=== PATIENT | female | born 1950 | race Caucasian/White ===

== ENCOUNTER 2020-11-09 20:50 | Inpatient (IN) ==
[2020-11-10] MEDS: Gabapentin 300 MG CAPSULE PO SCH ×2 (16:35→20:47)
[2020-11-10] MEDS: *HR* OxyCODONE Immed Rel 5 MG TABLET PO PRN ×2 (16:35→20:53)
[2020-11-10] MEDS ORDERED: *HR* OxyCODONE Immed Rel 5 MG TABLET PO SCH (18:00)
[2020-11-10] MEDS ORDERED: RED YEAST RICE 600 MG PO SCH (21:00)
[2020-11-10] MEDS: Budesonide/Formoterol 80/4.5 1 PUFF INH IH SCH (21:45)
[2020-11-11 04:03] LABS: Basophils # 0.1 K/mcL (0.0-0.2); Basophils % 0.9 %; Eosinophils # 0.3 K/mcL (0.0-0.6); Eosinophils % 3.1 %; Hematocrit 26.8 % (35.3-44.9); Hemoglobin 8.4 g/dL (11.5-15.4); Immature Granulocytes % 0.4 % (0-4); Lymphocytes # 2.4 K/mcL (0.6-4.6); Lymphocytes % 26.2 %; Mean Corpuscular HGB Conc 31.3 g/dL (31.6-35.5); Mean Corpuscular Hemoglobin 29.8 pg (28.0-33.3); Mean Platelet Volume 8.6 fL (9.4-12.4); Monocytes # 0.7 K/mcL (0.0-1.3); Monocytes % 8.2 %; Neutrophils # 5.5 K/mcL (1.6-8.9); Platelet Count 336 K/mcL (140-400); Red Blood Count 2.82 M/mcL (3.82-4.97); Red Cell Distribution Width 18.7 % (11.5-14.5); Segmented Neutrophils % 61.2 %
[2020-11-11] MEDS: *HR* Enoxaparin 40 MG/0.4 ML SYRINGE SQ SCH (05:36)
[2020-11-11] MEDS: *HR* OxyCODONE Immed Rel 5 MG TABLET PO PRN ×5 (05:36→22:31)
[2020-11-11 06:20] LABS: BUN/Creatinine Ratio 32 (6-26); Blood Urea Nitrogen 12 mg/dL (8-23); Calcium 8.3 mg/dL (8.6-10.3); Carbon Dioxide 32 mEq/L (23-29); Chloride 101 mEq/L (98-107); Glucose 120 mg/dL (70-105); Osmolality,Calculated 289 (280-300); Sodium 139 mEq/L (136-145); eGFR For African Americans > 60 (> 60); eGFR For Non-African Americans > 60 (> 60)
[2020-11-11] MEDS: Gabapentin 300 MG CAPSULE PO SCH ×4 (09:35→21:18)
[2020-11-11] MEDS: Cholecalciferol (D-3) 1,000 UNIT (25MCG) TABLET PO SCH (09:35)
[2020-11-11] MEDS: Multivit/Ca/Min/Fe/FA 1 TAB TABLET PO SCH (09:35)
[2020-11-11] MEDS: Loratadine 10 MG TABLET PO SCH (09:35)
[2020-11-11] MEDS: Ertapenem 1,000 MG in 0.9 % Sodium Chloride Mini Bag 100 ML IVPB SCH (09:36)
[2020-11-11] MEDS: Fluticasone Propionate Nasal 50 MCG/SPRAY BOTTLE NS SCH (09:43)
[2020-11-11] MEDS: Budesonide/Formoterol 80/4.5 1 PUFF INH IH SCH ×2 (10:19→22:21)
[2020-11-11] MEDS ORDERED: Morphine Sulfate 2 MG/ML SYRINGE IVP ONE (12:38)
[2020-11-12] MEDS: *HR* OxyCODONE Immed Rel 5 MG TABLET PO PRN ×4 (03:55→20:53)
[2020-11-12] MEDS: *HR* Enoxaparin 40 MG/0.4 ML SYRINGE SQ SCH (04:55)
[2020-11-12] MEDS: Multivit/Ca/Min/Fe/FA 1 TAB TABLET PO SCH (09:22)
[2020-11-12] MEDS: Gabapentin 300 MG CAPSULE PO SCH ×4 (09:22→20:53)
[2020-11-12] MEDS: Cholecalciferol (D-3) 1,000 UNIT (25MCG) TABLET PO SCH (09:22)
[2020-11-12] MEDS: Ertapenem 1,000 MG in 0.9 % Sodium Chloride Mini Bag 100 ML IVPB SCH (09:22)
[2020-11-12] MEDS: Loratadine 10 MG TABLET PO SCH (09:22)
[2020-11-12] MEDS: Fluticasone Propionate Nasal 50 MCG/SPRAY BOTTLE NS SCH (09:27)
[2020-11-12] MEDS: Budesonide/Formoterol 80/4.5 1 PUFF INH IH SCH ×2 (10:28→21:12)
[2020-11-12 13:01] LABS: % Iron Saturation 12 % (15-50); Iron 26 mcg/dL (50-170); Transferrin 158 mg/dL (203-362)
[2020-11-12 13:12] LABS: Ferritin 488 ng/mL (10-120)
[2020-11-12 13:17] LABS: Vitamin B12 406 pg/mL (250-1100)
[2020-11-12 13:22] LABS: Vitamin D 25 Hydroxy 27 ng/mL (30-80)
[2020-11-12 15:17] LABS: Basophils # 0.1 K/mcL (0.0-0.2); Basophils % 0.9 %; Eosinophils # 0.5 K/mcL (0.0-0.6); Eosinophils % 5.7 %; Hemoglobin 8.4 g/dL (11.5-15.4); Immature Granulocytes % 0.5 % (0-4); Lymphocytes # 2.4 K/mcL (0.6-4.6); Lymphocytes % 29.6 %; Mean Corpuscular HGB Conc 31.1 g/dL (31.6-35.5); Mean Corpuscular Hemoglobin 29.4 pg (28.0-33.3); Mean Corpuscular Volume 94.4 fL (83.0-100.0); Mean Platelet Volume 8.5 fL (9.4-12.4); Monocytes # 0.7 K/mcL (0.0-1.3); Neutrophils # 4.4 K/mcL (1.6-8.9); Platelet Count 345 K/mcL (140-400); Red Blood Count 2.86 M/mcL (3.82-4.97); Red Cell Distribution Width 18.1 % (11.5-14.5); Segmented Neutrophils % 54.3 %; White Blood Count 8.1 K/mcL (4.3-11.1)
[2020-11-12 15:35] LABS: Albumin 2.2 g/dL (3.5-5.7); Albumin/Globulin Ratio 0.8 (1.1-2.2); BUN/Creatinine Ratio 29 (6-26); Bilirubin,Indirect 0.3 mg/dL (0.0-1.0); Bilirubin,Total 0.3 mg/dL (0.3-1.0); Blood Urea Nitrogen 12 mg/dL (8-23); Carbon Dioxide 33 mEq/L (23-29); Chloride 99 mEq/L (98-107); Globulin 2.6 g/dL (2.4-3.5); Glucose 140 mg/dL (70-105); Osmolality,Calculated 284 (280-300); Potassium 3.7 mEq/L (3.5-5.1); Sodium 136 mEq/L (136-145); Total Protein 4.8 g/dL (6.4-8.9); eGFR For African Americans > 60 (> 60); eGFR For Non-African Americans > 60 (> 60)
[2020-11-12] MEDS: Sennosides/Docusate Sodium TABLET PO SCH (20:52)
[2020-11-13] MEDS: *HR* Enoxaparin 40 MG/0.4 ML SYRINGE SQ SCH (04:58)
[2020-11-13] MEDS: *HR* OxyCODONE Immed Rel 5 MG TABLET PO PRN ×5 (04:58→21:17)
[2020-11-13] MEDS ORDERED: Cholecalciferol (D-3) 1,000 UNIT (25MCG) TABLET PO SCH (09:00)
[2020-11-13] MEDS: Loratadine 10 MG TABLET PO SCH (09:01)
[2020-11-13] MEDS: Gabapentin 300 MG CAPSULE PO SCH ×4 (09:01→20:46)
[2020-11-13] MEDS: Multivit/Ca/Min/Fe/FA 1 TAB TABLET PO SCH (09:01)
[2020-11-13] MEDS: Fluticasone Propionate Nasal 50 MCG/SPRAY BOTTLE NS SCH (09:01)
[2020-11-13] MEDS: Sennosides/Docusate Sodium TABLET PO SCH ×2 (09:02→20:46)
[2020-11-13] MEDS: Ertapenem 1,000 MG in 0.9 % Sodium Chloride Mini Bag 100 ML IVPB SCH (09:04)
[2020-11-13] MEDS: Cholecalciferol (D-3) 1,000 UNIT (25MCG) TABLET PO SCH (09:47)
[2020-11-13] MEDS: Budesonide/Formoterol 80/4.5 1 PUFF INH IH SCH ×2 (10:03→22:22)
[2020-11-13] MEDS: Morphine Sulfate 2 MG/ML SYRINGE IVP PRN (14:10)
[2020-11-14 04:51] LABS: BUN/Creatinine Ratio 27 (6-26); Blood Urea Nitrogen 12 mg/dL (8-23); Calcium 8.2 mg/dL (8.6-10.3); Carbon Dioxide 34 mEq/L (23-29); Chloride 99 mEq/L (98-107); Glucose 112 mg/dL (70-105); Osmolality,Calculated 287 (280-300); Potassium 3.6 mEq/L (3.5-5.1); Sodium 138 mEq/L (136-145); eGFR For African Americans > 60 (> 60); eGFR For Non-African Americans > 60 (> 60)
[2020-11-14] MEDS: *HR* OxyCODONE Immed Rel 5 MG TABLET PO PRN ×4 (04:51→20:42)
[2020-11-14] MEDS: *HR* Enoxaparin 40 MG/0.4 ML SYRINGE SQ SCH (04:53)
[2020-11-14] MEDS: Sennosides/Docusate Sodium TABLET PO SCH ×2 (08:55→20:42)
[2020-11-14] MEDS: Gabapentin 300 MG CAPSULE PO SCH ×4 (08:55→20:42)
[2020-11-14] MEDS: Loratadine 10 MG TABLET PO SCH (08:55)
[2020-11-14] MEDS: Multivit/Ca/Min/Fe/FA 1 TAB TABLET PO SCH (08:55)
[2020-11-14] MEDS: Cholecalciferol (D-3) 1,000 UNIT (25MCG) TABLET PO SCH (08:56)
[2020-11-14] MEDS: Ertapenem 1,000 MG in 0.9 % Sodium Chloride Mini Bag 100 ML IVPB SCH (08:58)
[2020-11-14] MEDS: Fluticasone Propionate Nasal 50 MCG/SPRAY BOTTLE NS SCH (08:59)
[2020-11-14] MEDS: Budesonide/Formoterol 80/4.5 1 PUFF INH IH SCH ×2 (09:33→22:45)
[2020-11-14] MEDS: Morphine Sulfate 2 MG/ML SYRINGE IVP PRN (11:01)
[2020-11-14] MEDS: Ascorbic Acid 500 MG TABLET PO SCH (20:42)
[2020-11-15] MEDS: *HR* Enoxaparin 40 MG/0.4 ML SYRINGE SQ SCH (04:58)
[2020-11-15] MEDS: *HR* OxyCODONE Immed Rel 5 MG TABLET PO PRN ×3 (05:36→21:30)
[2020-11-15 07:20] LABS: Basophils # 0.1 K/mcL (0.0-0.2); Basophils % 1.1 %; Eosinophils # 0.6 K/mcL (0.0-0.6); Eosinophils % 8.2 %; Hematocrit 28.4 % (35.3-44.9); Hemoglobin 8.7 g/dL (11.5-15.4); Immature Granulocytes % 0.5 % (0-4); Lymphocytes # 2.5 K/mcL (0.6-4.6); Lymphocytes % 34.6 %; Mean Corpuscular HGB Conc 30.6 g/dL (31.6-35.5); Mean Corpuscular Hemoglobin 29.5 pg (28.0-33.3); Mean Corpuscular Volume 96.3 fL (83.0-100.0); Mean Platelet Volume 9.2 fL (9.4-12.4); Monocytes # 0.6 K/mcL (0.0-1.3); Monocytes % 8.6 %; Neutrophils # 3.4 K/mcL (1.6-8.9); Platelet Count 213 K/mcL (140-400); Red Blood Count 2.95 M/mcL (3.82-4.97); Red Cell Distribution Width 17.3 % (11.5-14.5); White Blood Count 7.3 K/mcL (4.3-11.1)
[2020-11-15] MEDS: Multivit/Ca/Min/Fe/FA 1 TAB TABLET PO SCH (08:28)
[2020-11-15] MEDS: Pyridoxine (B-6) 50 MG TABLET PO SCH (08:28)
[2020-11-15] MEDS: Ascorbic Acid 500 MG TABLET PO SCH ×2 (08:28→20:26)
[2020-11-15] MEDS: Loratadine 10 MG TABLET PO SCH (08:28)
[2020-11-15] MEDS: Sennosides/Docusate Sodium TABLET PO SCH ×2 (08:28→20:26)
[2020-11-15] MEDS: Zinc Sulfate 220 MG CAPSULE PO SCH (08:29)
[2020-11-15] MEDS: Cholecalciferol (D-3) 1,000 UNIT (25MCG) TABLET PO SCH (08:29)
[2020-11-15] MEDS: Gabapentin 300 MG CAPSULE PO SCH ×4 (08:29→20:26)
[2020-11-15] MEDS: Ertapenem 1,000 MG in 0.9 % Sodium Chloride Mini Bag 100 ML IVPB SCH (08:29)
[2020-11-15] MEDS: Fluticasone Propionate Nasal 50 MCG/SPRAY BOTTLE NS SCH (08:31)
[2020-11-15] MEDS: Budesonide/Formoterol 80/4.5 1 PUFF INH IH SCH ×2 (09:50→21:23)
[2020-11-15 09:57] LABS: Platelet Estimate Normal (Normal)
[2020-11-15 10:12] LABS: BUN/Creatinine Ratio 37 (6-26); Blood Urea Nitrogen 14 mg/dL (8-23); Calcium 8.2 mg/dL (8.6-10.3); Carbon Dioxide 29 mEq/L (23-29); Chloride 100 mEq/L (98-107); Glucose 148 mg/dL (70-105); Osmolality,Calculated 287 (280-300); Potassium 3.9 mEq/L (3.5-5.1); Sodium 137 mEq/L (136-145); eGFR For African Americans > 60 (> 60); eGFR For Non-African Americans > 60 (> 60)
[2020-11-15] MEDS: Morphine Sulfate 2 MG/ML SYRINGE IVP PRN ×2 (10:55→22:32)
[2020-11-15] MEDS ORDERED: *HR* FentaNYL PATCH 12 MCG PATCH TD SCH (18:15)
[2020-11-16] MEDS: *HR* Enoxaparin 40 MG/0.4 ML SYRINGE SQ SCH (05:44)
[2020-11-16] MEDS: *HR* OxyCODONE Immed Rel 5 MG TABLET PO PRN ×4 (06:09→19:52)
[2020-11-16] MEDS: Ascorbic Acid 500 MG TABLET PO SCH ×2 (08:43→20:36)
[2020-11-16] MEDS: Gabapentin 300 MG CAPSULE PO SCH ×4 (08:43→20:36)
[2020-11-16] MEDS: Sennosides/Docusate Sodium TABLET PO SCH ×2 (08:43→20:37)
[2020-11-16] MEDS: Zinc Sulfate 220 MG CAPSULE PO SCH (08:43)
[2020-11-16] MEDS: Multivit/Ca/Min/Fe/FA 1 TAB TABLET PO SCH (08:43)
[2020-11-16] MEDS: Loratadine 10 MG TABLET PO SCH (08:43)
[2020-11-16] MEDS: Cholecalciferol (D-3) 1,000 UNIT (25MCG) TABLET PO SCH (08:44)
[2020-11-16] MEDS: Ertapenem 1,000 MG in 0.9 % Sodium Chloride Mini Bag 100 ML IVPB SCH (08:45)
[2020-11-16] MEDS: Pyridoxine (B-6) 50 MG TABLET PO SCH (10:02)
[2020-11-16] MEDS: Fluticasone Propionate Nasal 50 MCG/SPRAY BOTTLE NS SCH (10:02)
[2020-11-16] MEDS: Budesonide/Formoterol 80/4.5 1 PUFF INH IH SCH ×2 (10:24→21:26)
[2020-11-17] MEDS: *HR* OxyCODONE Immed Rel 5 MG TABLET PO PRN ×5 (02:49→20:29)
[2020-11-17] MEDS: *HR* Enoxaparin 40 MG/0.4 ML SYRINGE SQ SCH (05:47)
[2020-11-17] MEDS: Multivit/Ca/Min/Fe/FA 1 TAB TABLET PO SCH (08:29)
[2020-11-17] MEDS: Ascorbic Acid 500 MG TABLET PO SCH ×2 (08:29→20:28)
[2020-11-17] MEDS: Zinc Sulfate 220 MG CAPSULE PO SCH (08:29)
[2020-11-17] MEDS: Sennosides/Docusate Sodium TABLET PO SCH ×2 (08:29→20:30)
[2020-11-17] MEDS: Loratadine 10 MG TABLET PO SCH (08:29)
[2020-11-17] MEDS: Gabapentin 300 MG CAPSULE PO SCH ×4 (08:29→20:28)
[2020-11-17] MEDS: Cholecalciferol (D-3) 1,000 UNIT (25MCG) TABLET PO SCH (08:30)
[2020-11-17] MEDS: Ertapenem 1,000 MG in 0.9 % Sodium Chloride Mini Bag 100 ML IVPB SCH (08:30)
[2020-11-17] MEDS: Fluticasone Propionate Nasal 50 MCG/SPRAY BOTTLE NS SCH (08:31)
[2020-11-17] MEDS: Budesonide/Formoterol 80/4.5 1 PUFF INH IH SCH ×2 (08:38→21:10)
[2020-11-17] MEDS: Morphine Sulfate 2 MG/ML SYRINGE IVP PRN (14:25)
[2020-11-17] MEDS: Pyridoxine (B-6) 50 MG TABLET PO SCH (16:08)
[2020-11-18] MEDS: *HR* OxyCODONE Immed Rel 5 MG TABLET PO PRN ×6 (00:27→20:48)
[2020-11-18] MEDS: *HR* Enoxaparin 40 MG/0.4 ML SYRINGE SQ SCH (04:29)
[2020-11-18] MEDS ORDERED: *HR* FentaNYL PATCH 25 MCG PATCH TD SCH (07:45)
[2020-11-18] MEDS: Budesonide/Formoterol 80/4.5 1 PUFF INH IH SCH ×2 (08:30→22:15)
[2020-11-18] MEDS: Zinc Sulfate 220 MG CAPSULE PO SCH (08:34)
[2020-11-18] MEDS: Loratadine 10 MG TABLET PO SCH (08:34)
[2020-11-18] MEDS: Fluticasone Propionate Nasal 50 MCG/SPRAY BOTTLE NS SCH (08:34)
[2020-11-18] MEDS: Cholecalciferol (D-3) 1,000 UNIT (25MCG) TABLET PO SCH (08:34)
[2020-11-18] MEDS: Gabapentin 300 MG CAPSULE PO SCH ×4 (08:34→20:47)
[2020-11-18] MEDS: Ascorbic Acid 500 MG TABLET PO SCH ×2 (08:35→20:48)
[2020-11-18] MEDS: Ertapenem 1,000 MG in 0.9 % Sodium Chloride Mini Bag 100 ML IVPB SCH (08:35)
[2020-11-18] MEDS: Sennosides/Docusate Sodium TABLET PO SCH ×2 (08:36→20:47)
[2020-11-18] MEDS: Multivit/Ca/Min/Fe/FA 1 TAB TABLET PO SCH (08:37)
[2020-11-18] MEDS: Pyridoxine (B-6) 50 MG TABLET PO SCH (08:37)
[2020-11-19] MEDS: *HR* Enoxaparin 40 MG/0.4 ML SYRINGE SQ SCH (05:59)
[2020-11-19] MEDS: *HR* OxyCODONE Immed Rel 5 MG TABLET PO PRN ×4 (06:02→20:45)
[2020-11-19 07:05] LABS: Basophils # 0.1 K/mcL (0.0-0.2); Basophils % 1.2 %; Eosinophils # 0.5 K/mcL (0.0-0.6); Eosinophils % 5.7 %; Hematocrit 30.3 % (35.3-44.9); Hemoglobin 9.4 g/dL (11.5-15.4); Immature Granulocytes % 0.5 % (0-4); Lymphocytes # 2.6 K/mcL (0.6-4.6); Lymphocytes % 28.6 %; Mean Corpuscular Hemoglobin 29.2 pg (28.0-33.3); Mean Corpuscular Volume 94.1 fL (83.0-100.0); Mean Platelet Volume 8.5 fL (9.4-12.4); Monocytes # 0.9 K/mcL (0.0-1.3); Monocytes % 9.6 %; Platelet Count 413 K/mcL (140-400); Red Blood Count 3.22 M/mcL (3.82-4.97); Red Cell Distribution Width 16.2 % (11.5-14.5); Segmented Neutrophils % 54.4 %; White Blood Count 9.2 K/mcL (4.3-11.1)
[2020-11-19 07:31] LABS: Alanine Aminotransferase 32 Units/L (7-52); Albumin 2.2 g/dL (3.5-5.7); Albumin/Globulin Ratio 0.8 (1.1-2.2); Alkaline Phosphatase 177 Units/L (34-104); Aspartate Amino Transferase 36 Units/L (13-39); BUN/Creatinine Ratio 34 (6-26); Bilirubin,Direct 0.1 mg/dL (0.0-0.2); Bilirubin,Indirect 0.3 mg/dL (0.0-1.0); Bilirubin,Total 0.4 mg/dL (0.3-1.0); Blood Urea Nitrogen 11 mg/dL (8-23); Calcium 8.3 mg/dL (8.6-10.3); Carbon Dioxide 31 mEq/L (23-29); Chloride 99 mEq/L (98-107); Globulin 2.9 g/dL (2.4-3.5); Glucose 127 mg/dL (70-105); Osmolality,Calculated 283 (280-300); Potassium 3.6 mEq/L (3.5-5.1); Sodium 136 mEq/L (136-145); Total Protein 5.1 g/dL (6.4-8.9); eGFR For African Americans > 60 (> 60); eGFR For Non-African Americans > 60 (> 60)
[2020-11-19] MEDS: Budesonide/Formoterol 80/4.5 1 PUFF INH IH SCH ×2 (08:32→21:40)
[2020-11-19] MEDS: Cholecalciferol (D-3) 1,000 UNIT (25MCG) TABLET PO SCH (08:52)
[2020-11-19] MEDS: Ascorbic Acid 500 MG TABLET PO SCH ×2 (08:53→20:04)
[2020-11-19] MEDS: Zinc Sulfate 220 MG CAPSULE PO SCH (08:53)
[2020-11-19] MEDS: Multivit/Ca/Min/Fe/FA 1 TAB TABLET PO SCH (08:53)
[2020-11-19] MEDS: Sennosides/Docusate Sodium TABLET PO SCH ×2 (08:53→20:05)
[2020-11-19] MEDS: Loratadine 10 MG TABLET PO SCH (08:53)
[2020-11-19] MEDS: Gabapentin 300 MG CAPSULE PO SCH ×4 (08:53→20:04)
[2020-11-19] MEDS: Morphine Sulfate 2 MG/ML SYRINGE IVP PRN (09:46)
[2020-11-19] MEDS: Fluticasone Propionate Nasal 50 MCG/SPRAY BOTTLE NS SCH (09:51)
[2020-11-19] MEDS: Pyridoxine (B-6) 50 MG TABLET PO SCH (11:30)
[2020-11-19] MEDS: Ertapenem 1,000 MG in 0.9 % Sodium Chloride Mini Bag 100 ML IVPB SCH (11:30)
[2020-11-20] MEDS: *HR* Enoxaparin 40 MG/0.4 ML SYRINGE SQ SCH (05:38)
[2020-11-20] MEDS: *HR* OxyCODONE Immed Rel 5 MG TABLET PO PRN ×3 (07:47→21:28)
[2020-11-20] MEDS: Zinc Sulfate 220 MG CAPSULE PO SCH (09:06)
[2020-11-20] MEDS: Ascorbic Acid 500 MG TABLET PO SCH ×2 (09:07→21:28)
[2020-11-20] MEDS: Cholecalciferol (D-3) 1,000 UNIT (25MCG) TABLET PO SCH (09:07)
[2020-11-20] MEDS: Sennosides/Docusate Sodium TABLET PO SCH ×2 (09:07→21:29)
[2020-11-20] MEDS: Loratadine 10 MG TABLET PO SCH (09:08)
[2020-11-20] MEDS: Multivit/Ca/Min/Fe/FA 1 TAB TABLET PO SCH (09:09)
[2020-11-20] MEDS: Pyridoxine (B-6) 50 MG TABLET PO SCH (09:09)
[2020-11-20] MEDS: Gabapentin 300 MG CAPSULE PO SCH ×4 (09:09→21:28)
[2020-11-20] MEDS: Fluticasone Propionate Nasal 50 MCG/SPRAY BOTTLE NS SCH (09:11)
[2020-11-20] MEDS: Budesonide/Formoterol 80/4.5 1 PUFF INH IH SCH ×2 (10:09→22:28)
[2020-11-20] MEDS: Morphine Sulfate 2 MG/ML SYRINGE IVP PRN ×2 (10:37→15:12)
[2020-11-20] MEDS: Ertapenem 1,000 MG in 0.9 % Sodium Chloride Mini Bag 100 ML IVPB SCH (10:59)
[2020-11-20] MEDS ORDERED: *HR* Alteplase (Cathflo) 2 MG VIAL IVP ONE ×2 (15:16→22:00)
[2020-11-20] MEDS ORDERED: Water for inj. (sterile) 10 ML ONE (16:48)
[2020-11-20] MEDS ORDERED: *HR* FentaNYL PATCH 25 MCG PATCH TD SCH (16:55)
[2020-11-21] MEDS: *HR* OxyCODONE Immed Rel 5 MG TABLET PO PRN ×6 (01:29→21:54)
[2020-11-21] MEDS: *HR* Enoxaparin 40 MG/0.4 ML SYRINGE SQ SCH (05:26)
[2020-11-21] MEDS: Pyridoxine (B-6) 50 MG TABLET PO SCH (08:45)
[2020-11-21] MEDS: Ascorbic Acid 500 MG TABLET PO SCH ×2 (08:45→19:39)
[2020-11-21] MEDS: Zinc Sulfate 220 MG CAPSULE PO SCH (08:45)
[2020-11-21] MEDS: Cholecalciferol (D-3) 1,000 UNIT (25MCG) TABLET PO SCH (08:45)
[2020-11-21] MEDS: Gabapentin 300 MG CAPSULE PO SCH ×4 (08:45→19:39)
[2020-11-21] MEDS: Loratadine 10 MG TABLET PO SCH (08:45)
[2020-11-21] MEDS: Multivit/Ca/Min/Fe/FA 1 TAB TABLET PO SCH (08:45)
[2020-11-21] MEDS: Sennosides/Docusate Sodium TABLET PO SCH ×2 (08:46→19:40)
[2020-11-21] MEDS: Fluticasone Propionate Nasal 50 MCG/SPRAY BOTTLE NS SCH (08:52)
[2020-11-21] MEDS: Budesonide/Formoterol 80/4.5 1 PUFF INH IH SCH ×2 (09:53→22:35)
[2020-11-21] MEDS: Ertapenem 1,000 MG in 0.9 % Sodium Chloride Mini Bag 100 ML IVPB SCH (10:42)
[2020-11-21] MEDS: Morphine Sulfate 2 MG/ML SYRINGE IVP PRN (10:43)
[2020-11-22] MEDS: *HR* OxyCODONE Immed Rel 5 MG TABLET PO PRN ×3 (02:06→20:05)
[2020-11-22 05:41] LABS: BUN/Creatinine Ratio 44 (6-26); Blood Urea Nitrogen 16 mg/dL (8-23); Calcium 8.3 mg/dL (8.6-10.3); Carbon Dioxide 33 mEq/L (23-29); Chloride 99 mEq/L (98-107); Glucose 111 mg/dL (70-105); Osmolality,Calculated 284 (280-300); Potassium 3.7 mEq/L (3.5-5.1); Sodium 136 mEq/L (136-145); eGFR For African Americans > 60 (> 60); eGFR For Non-African Americans > 60 (> 60)
[2020-11-22] MEDS: *HR* Enoxaparin 40 MG/0.4 ML SYRINGE SQ SCH (05:54)
[2020-11-22] MEDS: Gabapentin 300 MG CAPSULE PO SCH ×4 (08:34→20:05)
[2020-11-22] MEDS: Pyridoxine (B-6) 50 MG TABLET PO SCH (08:34)
[2020-11-22] MEDS: Loratadine 10 MG TABLET PO SCH (08:34)
[2020-11-22] MEDS: Multivit/Ca/Min/Fe/FA 1 TAB TABLET PO SCH (08:34)
[2020-11-22] MEDS: Ascorbic Acid 500 MG TABLET PO SCH ×2 (08:34→20:05)
[2020-11-22] MEDS: Sennosides/Docusate Sodium TABLET PO SCH ×2 (08:34→20:15)
[2020-11-22] MEDS: Cholecalciferol (D-3) 1,000 UNIT (25MCG) TABLET PO SCH (08:34)
[2020-11-22] MEDS: Zinc Sulfate 220 MG CAPSULE PO SCH (08:34)
[2020-11-22] MEDS: Fluticasone Propionate Nasal 50 MCG/SPRAY BOTTLE NS SCH (08:48)
[2020-11-22] MEDS: Budesonide/Formoterol 80/4.5 1 PUFF INH IH SCH ×2 (08:57→21:30)
[2020-11-22] MEDS: Morphine Sulfate 2 MG/ML SYRINGE IVP PRN (10:06)
[2020-11-22] MEDS: Ertapenem 1,000 MG in 0.9 % Sodium Chloride Mini Bag 100 ML IVPB SCH (10:26)
[2020-11-23] MEDS: *HR* OxyCODONE Immed Rel 5 MG TABLET PO PRN ×4 (05:48→20:46)
[2020-11-23] MEDS: *HR* Enoxaparin 40 MG/0.4 ML SYRINGE SQ SCH (05:49)
[2020-11-23] MEDS: Budesonide/Formoterol 80/4.5 1 PUFF INH IH SCH ×2 (09:05→21:55)
[2020-11-23] MEDS: Sennosides/Docusate Sodium TABLET PO SCH ×2 (09:14→20:49)
[2020-11-23] MEDS: Zinc Sulfate 220 MG CAPSULE PO SCH (09:15)
[2020-11-23] MEDS: Cholecalciferol (D-3) 1,000 UNIT (25MCG) TABLET PO SCH (09:16)
[2020-11-23] MEDS: Gabapentin 300 MG CAPSULE PO SCH ×4 (09:17→20:46)
[2020-11-23] MEDS: Multivit/Ca/Min/Fe/FA 1 TAB TABLET PO SCH (09:17)
[2020-11-23] MEDS: Fluticasone Propionate Nasal 50 MCG/SPRAY BOTTLE NS SCH (09:17)
[2020-11-23] MEDS: Loratadine 10 MG TABLET PO SCH (09:17)
[2020-11-23] MEDS: Ascorbic Acid 500 MG TABLET PO SCH ×2 (09:17→20:46)
[2020-11-23] MEDS: Pyridoxine (B-6) 50 MG TABLET PO SCH (09:17)
[2020-11-23] MEDS: Morphine Sulfate 2 MG/ML SYRINGE IVP PRN ×3 (10:32→23:09)
[2020-11-23] MEDS: Ertapenem 1,000 MG in 0.9 % Sodium Chloride Mini Bag 100 ML IVPB SCH (12:04)
[2020-11-23] MEDS: *HR* FentaNYL PATCH 50 MCG PATCH TD SCH (17:28)
[2020-11-24] MEDS: *HR* OxyCODONE Immed Rel 5 MG TABLET PO PRN ×4 (05:14→19:50)
[2020-11-24] MEDS: *HR* Enoxaparin 40 MG/0.4 ML SYRINGE SQ SCH (05:16)
[2020-11-24] MEDS: Gabapentin 300 MG CAPSULE PO SCH ×4 (09:01→19:50)
[2020-11-24] MEDS: Loratadine 10 MG TABLET PO SCH (09:01)
[2020-11-24] MEDS: Ascorbic Acid 500 MG TABLET PO SCH ×2 (09:02→19:50)
[2020-11-24] MEDS: Cholecalciferol (D-3) 1,000 UNIT (25MCG) TABLET PO SCH (09:02)
[2020-11-24] MEDS: Pyridoxine (B-6) 50 MG TABLET PO SCH (09:03)
[2020-11-24] MEDS: Sennosides/Docusate Sodium TABLET PO SCH ×2 (09:03→19:56)
[2020-11-24] MEDS: Zinc Sulfate 220 MG CAPSULE PO SCH (09:03)
[2020-11-24] MEDS: Multivit/Ca/Min/Fe/FA 1 TAB TABLET PO SCH (09:03)
[2020-11-24] MEDS: Fluticasone Propionate Nasal 50 MCG/SPRAY BOTTLE NS SCH (09:10)
[2020-11-24] MEDS: Budesonide/Formoterol 80/4.5 1 PUFF INH IH SCH ×2 (10:13→22:30)
[2020-11-24] MEDS: Ertapenem 1,000 MG in 0.9 % Sodium Chloride Mini Bag 100 ML IVPB SCH (11:05)
[2020-11-24] MEDS: Morphine Sulfate 2 MG/ML SYRINGE IVP PRN (15:00)
[2020-11-25] MEDS: *HR* OxyCODONE Immed Rel 5 MG TABLET PO PRN ×4 (03:34→19:47)
[2020-11-25] MEDS: *HR* Enoxaparin 40 MG/0.4 ML SYRINGE SQ SCH (05:39)
[2020-11-25] MEDS: Multivit/Ca/Min/Fe/FA 1 TAB TABLET PO SCH (07:33)
[2020-11-25] MEDS: Loratadine 10 MG TABLET PO SCH (07:33)
[2020-11-25] MEDS: Gabapentin 300 MG CAPSULE PO SCH ×4 (07:33→19:47)
[2020-11-25] MEDS: Ascorbic Acid 500 MG TABLET PO SCH ×2 (07:34→19:47)
[2020-11-25] MEDS: Cholecalciferol (D-3) 1,000 UNIT (25MCG) TABLET PO SCH (07:34)
[2020-11-25] MEDS: Pyridoxine (B-6) 50 MG TABLET PO SCH (07:34)
[2020-11-25] MEDS: Zinc Sulfate 220 MG CAPSULE PO SCH (07:34)
[2020-11-25] MEDS: Sennosides/Docusate Sodium TABLET PO SCH ×2 (07:36→20:17)
[2020-11-25] MEDS: Fluticasone Propionate Nasal 50 MCG/SPRAY BOTTLE NS SCH (07:36)
[2020-11-25] MEDS: Morphine Sulfate 2 MG/ML SYRINGE IVP PRN (08:50)
[2020-11-25] MEDS: Budesonide/Formoterol 80/4.5 1 PUFF INH IH SCH ×2 (10:06→21:52)
[2020-11-25] MEDS: Ertapenem 1,000 MG in 0.9 % Sodium Chloride Mini Bag 100 ML IVPB SCH (10:39)
[2020-11-26] MEDS: *HR* OxyCODONE Immed Rel 5 MG TABLET PO PRN ×4 (04:58→20:45)
[2020-11-26] MEDS: *HR* Enoxaparin 40 MG/0.4 ML SYRINGE SQ SCH (04:59)
[2020-11-26 08:06] LABS: Basophils # 0.1 K/mcL (0.0-0.2); Basophils % 1.5 %; Eosinophils # 0.3 K/mcL (0.0-0.6); Eosinophils % 4.2 %; Hematocrit 29.8 % (35.3-44.9); Lymphocytes # 2.8 K/mcL (0.6-4.6); Lymphocytes % 34.4 %; Mean Corpuscular HGB Conc 30.2 g/dL (31.6-35.5); Mean Corpuscular Hemoglobin 28.1 pg (28.0-33.3); Mean Corpuscular Volume 93.1 fL (83.0-100.0); Mean Platelet Volume 8.6 fL (9.4-12.4); Monocytes # 0.7 K/mcL (0.0-1.3); Monocytes % 8.7 %; Neutrophils # 4.1 K/mcL (1.6-8.9); Platelet Count 532 K/mcL (140-400); Red Cell Distribution Width 16.1 % (11.5-14.5); Segmented Neutrophils % 50.2 %; White Blood Count 8.2 K/mcL (4.3-11.1)
[2020-11-26 08:29] LABS: Alanine Aminotransferase 47 Units/L (7-52); Albumin 2.1 g/dL (3.5-5.7); Albumin/Globulin Ratio 0.7 (1.1-2.2); Alkaline Phosphatase 181 Units/L (34-104); Aspartate Amino Transferase 53 Units/L (13-39); BUN/Creatinine Ratio 32 (6-26); Bilirubin,Direct 0.1 mg/dL (0.0-0.2); Bilirubin,Indirect 0.2 mg/dL (0.0-1.0); Bilirubin,Total 0.3 mg/dL (0.3-1.0); Blood Urea Nitrogen 12 mg/dL (8-23); Calcium 8.5 mg/dL (8.6-10.3); Carbon Dioxide 34 mEq/L (23-29); Chloride 100 mEq/L (98-107); Globulin 2.9 g/dL (2.4-3.5); Glucose 100 mg/dL (70-105); Osmolality,Calculated 290 (280-300); Potassium 3.6 mEq/L (3.5-5.1); Sodium 140 mEq/L (136-145); eGFR For African Americans > 60 (> 60); eGFR For Non-African Americans > 60 (> 60)
[2020-11-26] MEDS: Morphine Sulfate 2 MG/ML SYRINGE IVP PRN ×2 (08:44→14:20)
[2020-11-26] MEDS: Pyridoxine (B-6) 50 MG TABLET PO SCH (08:45)
[2020-11-26] MEDS: Cholecalciferol (D-3) 1,000 UNIT (25MCG) TABLET PO SCH (08:45)
[2020-11-26] MEDS: Zinc Sulfate 220 MG CAPSULE PO SCH (08:46)
[2020-11-26] MEDS: Sennosides/Docusate Sodium TABLET PO SCH ×2 (08:46→20:43)
[2020-11-26] MEDS: Multivit/Ca/Min/Fe/FA 1 TAB TABLET PO SCH (08:46)
[2020-11-26] MEDS: Ascorbic Acid 500 MG TABLET PO SCH ×2 (08:46→20:43)
[2020-11-26] MEDS: Gabapentin 300 MG CAPSULE PO SCH ×4 (08:46→20:43)
[2020-11-26] MEDS: Loratadine 10 MG TABLET PO SCH (08:46)
[2020-11-26] MEDS: Fluticasone Propionate Nasal 50 MCG/SPRAY BOTTLE NS SCH (08:57)
[2020-11-26] MEDS: Budesonide/Formoterol 80/4.5 1 PUFF INH IH SCH ×2 (09:57→20:55)
[2020-11-26] MEDS: Ertapenem 1,000 MG in 0.9 % Sodium Chloride Mini Bag 100 ML IVPB SCH (10:55)
[2020-11-26] MEDS: *HR* FentaNYL PATCH 50 MCG PATCH TD SCH (16:45)
[2020-11-27] MEDS: Morphine Sulfate 2 MG/ML SYRINGE IVP PRN ×2 (00:01→09:38)
[2020-11-27] MEDS: *HR* OxyCODONE Immed Rel 5 MG TABLET PO PRN ×5 (03:24→20:15)
[2020-11-27] MEDS: *HR* Enoxaparin 40 MG/0.4 ML SYRINGE SQ SCH (06:39)
[2020-11-27] MEDS: Budesonide/Formoterol 80/4.5 1 PUFF INH IH SCH ×2 (07:58→20:20)
[2020-11-27] MEDS: Gabapentin 300 MG CAPSULE PO SCH ×4 (08:59→20:15)
[2020-11-27] MEDS: Pyridoxine (B-6) 50 MG TABLET PO SCH (08:59)
[2020-11-27] MEDS: Multivit/Ca/Min/Fe/FA 1 TAB TABLET PO SCH (08:59)
[2020-11-27] MEDS: Cholecalciferol (D-3) 1,000 UNIT (25MCG) TABLET PO SCH (08:59)
[2020-11-27] MEDS: Ascorbic Acid 500 MG TABLET PO SCH ×2 (09:00→20:15)
[2020-11-27] MEDS: Zinc Sulfate 220 MG CAPSULE PO SCH (09:00)
[2020-11-27] MEDS: Loratadine 10 MG TABLET PO SCH (09:00)
[2020-11-27] MEDS: Fluticasone Propionate Nasal 50 MCG/SPRAY BOTTLE NS SCH (09:00)
[2020-11-27] MEDS: Sennosides/Docusate Sodium TABLET PO SCH ×2 (09:00→20:20)
[2020-11-27] MEDS: Ertapenem 1,000 MG in 0.9 % Sodium Chloride Mini Bag 100 ML IVPB SCH (10:40)
[2020-11-27] MEDS: *HR* FentaNYL PATCH 75 MCG PATCH TD SCH (10:41)
[2020-11-28] MEDS: *HR* Enoxaparin 40 MG/0.4 ML SYRINGE SQ SCH (06:13)
[2020-11-28 07:50] LABS: Alanine Aminotransferase 46 Units/L (7-52); Albumin/Globulin Ratio 0.7 (1.1-2.2); Alkaline Phosphatase 203 Units/L (34-104); Aspartate Amino Transferase 51 Units/L (13-39); BUN/Creatinine Ratio 38 (6-26); Bilirubin,Total 0.2 mg/dL (0.3-1.0); Blood Urea Nitrogen 14 mg/dL (8-23); Calcium 8.1 mg/dL (8.6-10.3); Carbon Dioxide 32 mEq/L (23-29); Chloride 103 mEq/L (98-107); Globulin 2.7 g/dL (2.4-3.5); Glucose 100 mg/dL (70-105); Osmolality,Calculated 293 (280-300); Potassium 3.8 mEq/L (3.5-5.1); Sodium 141 mEq/L (136-145); Total Protein 4.7 g/dL (6.4-8.9); eGFR For African Americans > 60 (> 60); eGFR For Non-African Americans > 60 (> 60)
[2020-11-28] MEDS: *HR* OxyCODONE Immed Rel 5 MG TABLET PO PRN ×3 (07:51→23:14)
[2020-11-28] MEDS: Gabapentin 300 MG CAPSULE PO SCH ×4 (07:52→20:13)
[2020-11-28] MEDS: Ascorbic Acid 500 MG TABLET PO SCH ×2 (07:52→20:13)
[2020-11-28] MEDS: Sennosides/Docusate Sodium TABLET PO SCH ×2 (07:52→20:15)
[2020-11-28] MEDS: Multivit/Ca/Min/Fe/FA 1 TAB TABLET PO SCH (07:52)
[2020-11-28] MEDS: Loratadine 10 MG TABLET PO SCH (07:52)
[2020-11-28] MEDS: Cholecalciferol (D-3) 1,000 UNIT (25MCG) TABLET PO SCH (07:53)
[2020-11-28] MEDS: Zinc Sulfate 220 MG CAPSULE PO SCH (07:53)
[2020-11-28] MEDS: Pyridoxine (B-6) 50 MG TABLET PO SCH (07:53)
[2020-11-28] MEDS: Budesonide/Formoterol 80/4.5 1 PUFF INH IH SCH ×2 (09:10→20:44)
[2020-11-28] MEDS: Fluticasone Propionate Nasal 50 MCG/SPRAY BOTTLE NS SCH (09:47)
[2020-11-28] MEDS: Ertapenem 1,000 MG in 0.9 % Sodium Chloride Mini Bag 100 ML IVPB SCH (09:51)
[2020-11-28] MEDS: Morphine Sulfate 2 MG/ML SYRINGE IVP PRN ×2 (10:46→20:13)
[2020-11-29] MEDS: *HR* Enoxaparin 40 MG/0.4 ML SYRINGE SQ SCH (05:36)
[2020-11-29] MEDS: Pyridoxine (B-6) 50 MG TABLET PO SCH (08:14)
[2020-11-29] MEDS: Multivit/Ca/Min/Fe/FA 1 TAB TABLET PO SCH (08:14)
[2020-11-29] MEDS: Sennosides/Docusate Sodium TABLET PO SCH ×2 (08:15→20:31)
[2020-11-29] MEDS: Loratadine 10 MG TABLET PO SCH (08:15)
[2020-11-29] MEDS: Gabapentin 300 MG CAPSULE PO SCH ×4 (08:15→20:29)
[2020-11-29] MEDS: Ascorbic Acid 500 MG TABLET PO SCH ×2 (08:15→20:29)
[2020-11-29] MEDS: *HR* OxyCODONE Immed Rel 5 MG TABLET PO PRN ×3 (08:15→20:30)
[2020-11-29] MEDS: Zinc Sulfate 220 MG CAPSULE PO SCH (08:15)
[2020-11-29] MEDS: Cholecalciferol (D-3) 1,000 UNIT (25MCG) TABLET PO SCH (08:16)
[2020-11-29] MEDS: Fluticasone Propionate Nasal 50 MCG/SPRAY BOTTLE NS SCH (08:19)
[2020-11-29] MEDS: Morphine Sulfate 2 MG/ML SYRINGE IVP PRN (09:49)
[2020-11-29] MEDS: Ertapenem 1,000 MG in 0.9 % Sodium Chloride Mini Bag 100 ML IVPB SCH (10:49)
[2020-11-29] MEDS: Budesonide/Formoterol 80/4.5 1 PUFF INH IH SCH ×2 (10:51→21:00)
[2020-11-30] MEDS: *HR* OxyCODONE Immed Rel 5 MG TABLET PO PRN ×5 (00:31→20:38)
[2020-11-30] MEDS: *HR* Enoxaparin 40 MG/0.4 ML SYRINGE SQ SCH (04:31)
[2020-11-30] MEDS: Morphine Sulfate 2 MG/ML SYRINGE IVP PRN ×4 (07:15→22:19)
[2020-11-30] MEDS: Cholecalciferol (D-3) 1,000 UNIT (25MCG) TABLET PO SCH (08:00)
[2020-11-30] MEDS: Pyridoxine (B-6) 50 MG TABLET PO SCH (08:00)
[2020-11-30] MEDS: Gabapentin 300 MG CAPSULE PO SCH ×4 (08:00→20:33)
[2020-11-30] MEDS: Sennosides/Docusate Sodium TABLET PO SCH ×2 (08:01→20:31)
[2020-11-30] MEDS: Multivit/Ca/Min/Fe/FA 1 TAB TABLET PO SCH (08:01)
[2020-11-30] MEDS: Zinc Sulfate 220 MG CAPSULE PO SCH (08:01)
[2020-11-30] MEDS: Ascorbic Acid 500 MG TABLET PO SCH ×2 (08:01→20:33)
[2020-11-30] MEDS: Loratadine 10 MG TABLET PO SCH (08:01)
[2020-11-30] MEDS: *HR* FentaNYL PATCH 75 MCG PATCH TD SCH (08:07)
[2020-11-30] MEDS: Fluticasone Propionate Nasal 50 MCG/SPRAY BOTTLE NS SCH (08:17)
[2020-11-30] MEDS: Budesonide/Formoterol 80/4.5 1 PUFF INH IH SCH ×2 (10:01→21:19)
[2020-11-30] MEDS: Ertapenem 1,000 MG in 0.9 % Sodium Chloride Mini Bag 100 ML IVPB SCH (11:10)
[2020-12-01] MEDS: *HR* Enoxaparin 40 MG/0.4 ML SYRINGE SQ SCH (04:54)
[2020-12-01] MEDS: *HR* OxyCODONE Immed Rel 5 MG TABLET PO PRN ×4 (04:55→20:49)
[2020-12-01] MEDS: Zinc Sulfate 220 MG CAPSULE PO SCH (08:48)
[2020-12-01] MEDS: Sennosides/Docusate Sodium TABLET PO SCH ×2 (08:48→20:50)
[2020-12-01] MEDS: Loratadine 10 MG TABLET PO SCH (08:48)
[2020-12-01] MEDS: Ascorbic Acid 500 MG TABLET PO SCH ×2 (08:48→20:49)
[2020-12-01] MEDS: Gabapentin 300 MG CAPSULE PO SCH ×4 (08:48→20:49)
[2020-12-01] MEDS: Fluticasone Propionate Nasal 50 MCG/SPRAY BOTTLE NS SCH (08:51)
[2020-12-01] MEDS: Budesonide/Formoterol 80/4.5 1 PUFF INH IH SCH ×2 (08:58→20:43)
[2020-12-01] MEDS: Ertapenem 1,000 MG in 0.9 % Sodium Chloride Mini Bag 100 ML IVPB SCH (10:27)
[2020-12-01] MEDS: Cholecalciferol (D-3) 1,000 UNIT (25MCG) TABLET PO SCH (12:05)
[2020-12-01] MEDS: Morphine Sulfate 2 MG/ML SYRINGE IVP PRN (12:05)
[2020-12-01] MEDS: Pyridoxine (B-6) 50 MG TABLET PO SCH (12:05)
[2020-12-01] MEDS: Multivit/Ca/Min/Fe/FA 1 TAB TABLET PO SCH (12:05)
[2020-12-02] MEDS: *HR* OxyCODONE Immed Rel 5 MG TABLET PO PRN ×4 (03:35→19:53)
[2020-12-02] MEDS: *HR* Enoxaparin 40 MG/0.4 ML SYRINGE SQ SCH (06:27)
[2020-12-02] MEDS: Gabapentin 300 MG CAPSULE PO SCH ×4 (09:01→19:53)
[2020-12-02] MEDS: Loratadine 10 MG TABLET PO SCH (09:01)
[2020-12-02] MEDS: Ascorbic Acid 500 MG TABLET PO SCH ×2 (09:01→19:53)
[2020-12-02] MEDS: Sennosides/Docusate Sodium TABLET PO SCH ×2 (09:01→19:54)
[2020-12-02] MEDS: Fluticasone Propionate Nasal 50 MCG/SPRAY BOTTLE NS SCH (09:01)
[2020-12-02] MEDS: Budesonide/Formoterol 80/4.5 1 PUFF INH IH SCH ×2 (09:14→21:05)
[2020-12-02] MEDS: Ertapenem 1,000 MG in 0.9 % Sodium Chloride Mini Bag 100 ML IVPB SCH (10:02)
[2020-12-02] MEDS: Morphine Sulfate 2 MG/ML SYRINGE IVP PRN ×2 (11:23→15:56)
[2020-12-02] MEDS: Zinc Sulfate 220 MG CAPSULE PO SCH (12:21)
[2020-12-02] MEDS: Pyridoxine (B-6) 50 MG TABLET PO SCH (12:21)
[2020-12-02] MEDS: Multivit/Ca/Min/Fe/FA 1 TAB TABLET PO SCH (12:21)
[2020-12-02] MEDS: Cholecalciferol (D-3) 1,000 UNIT (25MCG) TABLET PO SCH (12:22)
[2020-12-03] MEDS: *HR* OxyCODONE Immed Rel 5 MG TABLET PO PRN ×3 (03:27→21:34)
[2020-12-03] MEDS ORDERED: Morphine Sulfate 2 MG/ML SYRINGE IVP ONE (05:30)
[2020-12-03] MEDS: Gabapentin 300 MG CAPSULE PO SCH ×4 (05:32→21:11)
[2020-12-03] MEDS: Loratadine 10 MG TABLET PO SCH ×2 (05:32→15:43)
[2020-12-03] MEDS ORDERED: *HR* Enoxaparin 40 MG/0.4 ML SYRINGE SQ SCH (09:00)
[2020-12-03] MEDS ORDERED: Ertapenem 1,000 MG in 0.9 % Sodium Chloride Mini Bag 100 ML IVPB SCH (10:00)
[2020-12-03] MEDS: Budesonide/Formoterol 80/4.5 1 PUFF INH IH SCH ×2 (10:58→20:47)
[2020-12-03] MEDS: Fluticasone Propionate Nasal 50 MCG/SPRAY BOTTLE NS SCH ×2 (14:04→15:44)
[2020-12-03] MEDS: Sennosides/Docusate Sodium TABLET PO SCH ×3 (14:04→21:11)
[2020-12-03] MEDS: Multivit/Ca/Min/Fe/FA 1 TAB TABLET PO SCH ×2 (14:05→15:45)
[2020-12-03] MEDS: Cholecalciferol (D-3) 1,000 UNIT (25MCG) TABLET PO SCH ×2 (14:05→15:40)
[2020-12-03] MEDS: Ascorbic Acid 500 MG TABLET PO SCH ×3 (14:05→21:11)
[2020-12-03] MEDS: Zinc Sulfate 220 MG CAPSULE PO SCH ×2 (14:05→15:43)
[2020-12-03] MEDS: Pyridoxine (B-6) 50 MG TABLET PO SCH ×2 (14:05→15:42)
[2020-12-03] MEDS: Morphine Sulfate 2 MG/ML SYRINGE IVP PRN ×2 (15:26→19:57)
[2020-12-03] MEDS: Ertapenem 1,000 MG in 0.9 % Sodium Chloride Mini Bag 100 ML IVPB SCH ×2 (15:43→16:14)
[2020-12-03] MEDS: *HR* Enoxaparin 40 MG/0.4 ML SYRINGE SQ SCH (15:44)
[2020-12-03] MEDS: *HR* FentaNYL PATCH 75 MCG PATCH TD SCH (16:13)
[2020-12-03] MEDS ORDERED: *HR* FentaNYL PATCH 75 MCG PATCH TD SCH (17:00)
[2020-12-03 21:21] LABS: Basophils # 0.1 K/mcL (0.0-0.2); Basophils % 0.6 %; Eosinophils # 0.1 K/mcL (0.0-0.6); Eosinophils % 0.7 %; Hematocrit 28.9 % (35.3-44.9); Hemoglobin 9.1 g/dL (11.5-15.4); Immature Granulocytes % 0.5 % (0-4); Lymphocytes # 2.2 K/mcL (0.6-4.6); Lymphocytes % 17.8 %; Mean Corpuscular HGB Conc 31.5 g/dL (31.6-35.5); Mean Corpuscular Hemoglobin 28.6 pg (28.0-33.3); Mean Corpuscular Volume 90.9 fL (83.0-100.0); Mean Platelet Volume 8.7 fL (9.4-12.4); Monocytes # 0.8 K/mcL (0.0-1.3); Monocytes % 6.5 %; Neutrophils # 9.3 K/mcL (1.6-8.9); Platelet Count 489 K/mcL (140-400); Red Blood Count 3.18 M/mcL (3.82-4.97); Red Cell Distribution Width 16.3 % (11.5-14.5); Segmented Neutrophils % 73.9 %; White Blood Count 12.6 K/mcL (4.3-11.1)
[2020-12-03 21:45] LABS: Alanine Aminotransferase 39 Units/L (7-52); Albumin 2.1 g/dL (3.5-5.7); Albumin/Globulin Ratio 0.8 (1.1-2.2); Alkaline Phosphatase 209 Units/L (34-104); Aspartate Amino Transferase 38 Units/L (13-39); BUN/Creatinine Ratio 38 (6-26); Bilirubin,Direct 0.1 mg/dL (0.0-0.2); Bilirubin,Indirect 0.2 mg/dL (0.0-1.0); Bilirubin,Total 0.3 mg/dL (0.3-1.0); Blood Urea Nitrogen 11 mg/dL (8-23); Carbon Dioxide 31 mEq/L (23-29); Chloride 100 mEq/L (98-107); Globulin 2.7 g/dL (2.4-3.5); Glucose 115 mg/dL (70-105); Osmolality,Calculated 284 (280-300); Potassium 3.8 mEq/L (3.5-5.1); Sodium 137 mEq/L (136-145); Total Protein 4.8 g/dL (6.4-8.9); eGFR For African Americans > 60 (> 60); eGFR For Non-African Americans > 60 (> 60)
[2020-12-04] MEDS: Morphine Sulfate 2 MG/ML SYRINGE IVP PRN ×4 (00:05→23:45)
[2020-12-04] MEDS: *HR* OxyCODONE Immed Rel 5 MG TABLET PO PRN ×4 (08:32→21:19)
[2020-12-04] MEDS: Budesonide/Formoterol 80/4.5 1 PUFF INH IH SCH ×2 (09:48→22:12)
[2020-12-04] MEDS: Sennosides/Docusate Sodium TABLET PO SCH ×2 (10:12→21:20)
[2020-12-04] MEDS: Fluticasone Propionate Nasal 50 MCG/SPRAY BOTTLE NS SCH (10:17)
[2020-12-04] MEDS: Ascorbic Acid 500 MG TABLET PO SCH ×2 (10:18→21:20)
[2020-12-04] MEDS: Gabapentin 300 MG CAPSULE PO SCH ×4 (10:18→21:20)
[2020-12-04] MEDS: Cholecalciferol (D-3) 1,000 UNIT (25MCG) TABLET PO SCH (10:18)
[2020-12-04] MEDS: Pyridoxine (B-6) 50 MG TABLET PO SCH (10:18)
[2020-12-04] MEDS: *HR* Enoxaparin 40 MG/0.4 ML SYRINGE SQ SCH (10:19)
[2020-12-04] MEDS: Multivit/Ca/Min/Fe/FA 1 TAB TABLET PO SCH (10:19)
[2020-12-04] MEDS: Loratadine 10 MG TABLET PO SCH (10:19)
[2020-12-04] MEDS: Zinc Sulfate 220 MG CAPSULE PO SCH (10:19)
[2020-12-04] MEDS: Ertapenem 1,000 MG in 0.9 % Sodium Chloride Mini Bag 100 ML IVPB SCH (16:28)
[2020-12-05] MEDS: Fluticasone Propionate Nasal 50 MCG/SPRAY BOTTLE NS SCH (08:32)
[2020-12-05] MEDS: *HR* OxyCODONE Immed Rel 5 MG TABLET PO PRN ×3 (08:33→20:09)
[2020-12-05] MEDS: *HR* Enoxaparin 40 MG/0.4 ML SYRINGE SQ SCH (08:33)
[2020-12-05] MEDS: Multivit/Ca/Min/Fe/FA 1 TAB TABLET PO SCH (08:34)
[2020-12-05] MEDS: Pyridoxine (B-6) 50 MG TABLET PO SCH (08:34)
[2020-12-05] MEDS: Sennosides/Docusate Sodium TABLET PO SCH ×2 (08:34→20:11)
[2020-12-05] MEDS: Ascorbic Acid 500 MG TABLET PO SCH ×2 (08:35→20:09)
[2020-12-05] MEDS: Gabapentin 300 MG CAPSULE PO SCH ×4 (08:35→20:09)
[2020-12-05] MEDS: Cholecalciferol (D-3) 1,000 UNIT (25MCG) TABLET PO SCH (08:35)
[2020-12-05] MEDS: Zinc Sulfate 220 MG CAPSULE PO SCH (08:35)
[2020-12-05] MEDS: Loratadine 10 MG TABLET PO SCH (08:35)
[2020-12-05] MEDS: Budesonide/Formoterol 80/4.5 1 PUFF INH IH SCH ×2 (09:25→21:40)
[2020-12-05] MEDS: Morphine Sulfate 2 MG/ML SYRINGE IVP PRN ×3 (11:01→22:25)
[2020-12-05] MEDS: Ertapenem 1,000 MG in 0.9 % Sodium Chloride Mini Bag 100 ML IVPB SCH (16:17)
[2020-12-06] MEDS: *HR* OxyCODONE Immed Rel 5 MG TABLET PO PRN ×3 (06:33→20:30)
[2020-12-06] MEDS: Morphine Sulfate 2 MG/ML SYRINGE IVP PRN ×4 (06:35→22:35)
[2020-12-06] MEDS: Loratadine 10 MG TABLET PO SCH (08:40)
[2020-12-06] MEDS: Sennosides/Docusate Sodium TABLET PO SCH ×2 (08:40→21:16)
[2020-12-06] MEDS: Pyridoxine (B-6) 50 MG TABLET PO SCH (08:41)
[2020-12-06] MEDS: Multivit/Ca/Min/Fe/FA 1 TAB TABLET PO SCH (08:41)
[2020-12-06] MEDS: *HR* Enoxaparin 40 MG/0.4 ML SYRINGE SQ SCH (08:41)
[2020-12-06] MEDS: Zinc Sulfate 220 MG CAPSULE PO SCH (08:41)
[2020-12-06] MEDS: Fluticasone Propionate Nasal 50 MCG/SPRAY BOTTLE NS SCH (08:41)
[2020-12-06] MEDS: Cholecalciferol (D-3) 1,000 UNIT (25MCG) TABLET PO SCH (08:41)
[2020-12-06] MEDS: Gabapentin 300 MG CAPSULE PO SCH ×4 (08:41→20:30)
[2020-12-06] MEDS: Ascorbic Acid 500 MG TABLET PO SCH ×2 (08:43→20:30)
[2020-12-06] MEDS: Budesonide/Formoterol 80/4.5 1 PUFF INH IH SCH ×2 (09:14→21:00)
[2020-12-06] MEDS: *HR* FentaNYL PATCH 100 MCG PATCH TD SCH (16:04)
[2020-12-06] MEDS: Ertapenem 1,000 MG in 0.9 % Sodium Chloride Mini Bag 100 ML IVPB SCH (16:05)
[2020-12-07] MEDS: Sennosides/Docusate Sodium TABLET PO SCH ×2 (08:14→21:49)
[2020-12-07] MEDS: Ascorbic Acid 500 MG TABLET PO SCH ×2 (08:14→21:49)
[2020-12-07] MEDS: Multivit/Ca/Min/Fe/FA 1 TAB TABLET PO SCH (08:14)
[2020-12-07] MEDS: Loratadine 10 MG TABLET PO SCH (08:14)
[2020-12-07] MEDS: Pyridoxine (B-6) 50 MG TABLET PO SCH (08:14)
[2020-12-07] MEDS: Cholecalciferol (D-3) 1,000 UNIT (25MCG) TABLET PO SCH (08:14)
[2020-12-07] MEDS: *HR* Enoxaparin 40 MG/0.4 ML SYRINGE SQ SCH (08:15)
[2020-12-07] MEDS: *HR* OxyCODONE Immed Rel 5 MG TABLET PO PRN ×3 (08:15→21:57)
[2020-12-07] MEDS: Gabapentin 300 MG CAPSULE PO SCH ×4 (08:15→22:18)
[2020-12-07] MEDS: Zinc Sulfate 220 MG CAPSULE PO SCH (08:15)
[2020-12-07] MEDS: Fluticasone Propionate Nasal 50 MCG/SPRAY BOTTLE NS SCH (08:21)
[2020-12-07] MEDS: Morphine Sulfate 2 MG/ML SYRINGE IVP PRN ×2 (08:35→18:17)
[2020-12-07] MEDS: Budesonide/Formoterol 80/4.5 1 PUFF INH IH SCH ×2 (08:52→20:32)
[2020-12-07 12:28] LABS: Basophils # 0.1 K/mcL (0.0-0.2); Basophils % 0.9 %; Eosinophils # 0.1 K/mcL (0.0-0.6); Eosinophils % 1.4 %; Hematocrit 30.4 % (35.3-44.9); Hemoglobin 9.5 g/dL (11.5-15.4); Immature Granulocytes % 0.6 % (0-4); Lymphocytes # 1.2 K/mcL (0.6-4.6); Lymphocytes % 18.1 %; Mean Corpuscular HGB Conc 31.3 g/dL (31.6-35.5); Mean Corpuscular Hemoglobin 27.9 pg (28.0-33.3); Mean Corpuscular Volume 89.4 fL (83.0-100.0); Mean Platelet Volume 8.5 fL (9.4-12.4); Monocytes # 0.5 K/mcL (0.0-1.3); Monocytes % 7.8 %; Neutrophils # 4.7 K/mcL (1.6-8.9); Platelet Count 367 K/mcL (140-400); Segmented Neutrophils % 71.2 %; White Blood Count 6.5 K/mcL (4.3-11.1)
[2020-12-07 12:46] LABS: Alanine Aminotransferase 49 Units/L (7-52); Albumin/Globulin Ratio 0.8 (1.1-2.2); Alkaline Phosphatase 208 Units/L (34-104); Aspartate Amino Transferase 64 Units/L (13-39); BUN/Creatinine Ratio 47 (6-26); Bilirubin,Total 0.2 mg/dL (0.3-1.0); Blood Urea Nitrogen 15 mg/dL (8-23); Calcium 7.8 mg/dL (8.6-10.3); Carbon Dioxide 30 mEq/L (23-29); Chloride 97 mEq/L (98-107); Globulin 2.6 g/dL (2.4-3.5); Glucose 112 mg/dL (70-105); Osmolality,Calculated 278 (280-300); Sodium 133 mEq/L (136-145); Total Protein 4.6 g/dL (6.4-8.9); eGFR For African Americans > 60 (> 60); eGFR For Non-African Americans > 60 (> 60)
[2020-12-07] MEDS: Ertapenem 1,000 MG in 0.9 % Sodium Chloride Mini Bag 100 ML IVPB SCH (15:07)
[2020-12-07] MEDS ORDERED: 0.9 % Sodium Chloride 250 ML ONE (17:35)
[2020-12-08] MEDS: *HR* OxyCODONE Immed Rel 5 MG TABLET PO PRN ×4 (07:01→23:29)
[2020-12-08] MEDS: Morphine Sulfate 2 MG/ML SYRINGE IVP PRN ×3 (07:54→20:05)
[2020-12-08] MEDS: *HR* Enoxaparin 40 MG/0.4 ML SYRINGE SQ SCH (07:55)
[2020-12-08] MEDS: Loratadine 10 MG TABLET PO SCH (07:55)
[2020-12-08] MEDS: Gabapentin 300 MG CAPSULE PO SCH ×4 (07:55→20:05)
[2020-12-08] MEDS: Fluticasone Propionate Nasal 50 MCG/SPRAY BOTTLE NS SCH (07:56)
[2020-12-08] MEDS: Sennosides/Docusate Sodium TABLET PO SCH ×2 (07:56→20:06)
[2020-12-08] MEDS: Budesonide/Formoterol 80/4.5 1 PUFF INH IH SCH ×2 (10:23→20:50)
[2020-12-08] MEDS: Pyridoxine (B-6) 50 MG TABLET PO SCH (11:16)
[2020-12-08] MEDS: Zinc Sulfate 220 MG CAPSULE PO SCH (11:16)
[2020-12-08] MEDS: Multivit/Ca/Min/Fe/FA 1 TAB TABLET PO SCH (11:17)
[2020-12-08] MEDS: Cholecalciferol (D-3) 1,000 UNIT (25MCG) TABLET PO SCH (11:17)
[2020-12-08] MEDS: Ascorbic Acid 500 MG TABLET PO SCH ×2 (11:17→20:05)
[2020-12-08] MEDS: Ertapenem 1,000 MG in 0.9 % Sodium Chloride Mini Bag 100 ML IVPB SCH (16:53)
[2020-12-09] MEDS: Morphine Sulfate 2 MG/ML SYRINGE IVP PRN ×5 (05:17→20:27)
[2020-12-09] MEDS: *HR* OxyCODONE Immed Rel 5 MG TABLET PO PRN ×3 (06:46→17:00)
[2020-12-09] MEDS: Zinc Sulfate 220 MG CAPSULE PO SCH (08:35)
[2020-12-09] MEDS: Gabapentin 300 MG CAPSULE PO SCH ×4 (08:35→20:26)
[2020-12-09] MEDS: Sennosides/Docusate Sodium TABLET PO SCH ×2 (08:35→20:25)
[2020-12-09] MEDS: *HR* Enoxaparin 40 MG/0.4 ML SYRINGE SQ SCH (08:35)
[2020-12-09] MEDS: Fluticasone Propionate Nasal 50 MCG/SPRAY BOTTLE NS SCH (08:36)
[2020-12-09] MEDS: Loratadine 10 MG TABLET PO SCH (08:36)
[2020-12-09] MEDS: Budesonide/Formoterol 80/4.5 1 PUFF INH IH SCH ×2 (10:49→21:12)
[2020-12-09] MEDS: Cholecalciferol (D-3) 1,000 UNIT (25MCG) TABLET PO SCH (13:55)
[2020-12-09] MEDS: Pyridoxine (B-6) 50 MG TABLET PO SCH (13:55)
[2020-12-09] MEDS: Ascorbic Acid 500 MG TABLET PO SCH ×2 (13:55→20:26)
[2020-12-09] MEDS: Megestrol Acetate 400 MG/10 ML UDC PO SCH ×2 (13:56→15:22)
[2020-12-09] MEDS: Multivit/Ca/Min/Fe/FA 1 TAB TABLET PO SCH (13:56)
[2020-12-09] MEDS ORDERED: *HR* FentaNYL PATCH 25 MCG PATCH TD SCH (14:15)
[2020-12-09] MEDS: *HR* FentaNYL PATCH 100 MCG PATCH TD SCH (14:46)
[2020-12-09] MEDS: Ertapenem 1,000 MG in 0.9 % Sodium Chloride Mini Bag 100 ML IVPB SCH (17:00)
[2020-12-10] MEDS ORDERED: Acetaminophen IV 500 MG/50 ML BAG IVPB ONE (02:57)
[2020-12-10] MEDS ORDERED: Acetaminophen 325 MG TABLET PO PRN (03:05)
[2020-12-10 06:36] LABS: Bilirubin,Urine Negative (Negative); Blood,Urine Negative (Negative); Clarity,Urine Cloudy (Clear); Color,Urine Dark Yellow (Yellow); Glucose,Urine (UA) Normal (Normal); Ketones,Urine 15 mg/dL (Negative); Leukocyte Esterase,Urine Small (Negative); Nitrite,Urine Negative (Negative); PH,Urine 5.5 pH Units (5.0-8.0); Protein,Urine 30 mg/dL (Neg-Trace); Specific Gravity,Urine 1.025 (1.010-1.025); Urobilinogen,Urine Normal (Normal)
[2020-12-10 06:43] LABS: Calcium Oxalate Crystals,Urine Present; Mucus,Urine Many per lpf (None-Few)
[2020-12-10 06:46] LABS: Bacteria,Urine Many per hpf (None-Few); RBC,Urine 0-3 per hpf (0-3); WBC,Urine 30-50 per hpf (0-3)
[2020-12-10 06:48] LABS: Budding Yeast,Urine Few per hpf (None Seen)
[2020-12-10 06:49] LABS: Granular Casts,Urine Few per lpf (None Seen); Hyaline Casts,Urine Few per lpf (None Seen)
[2020-12-10 06:51] LABS: Squamous Epithelial Cell,Urine Few per hpf (None-Few)
[2020-12-10 07:01] VITALS: BP 118/72
[2020-12-10] MEDS ORDERED: Acetaminophen 650 MG RECTAL SUPP RC PRN (07:45)
[2020-12-10] MEDS ORDERED: *HR* Alteplase (Cathflo) 2 MG VIAL IVP ONE (08:00)
[2020-12-10] MEDS ORDERED: Water for inj. (sterile) 10 ML ONE (08:07)
[2020-12-10 08:40] LABS: Basophils % 0.4 %; Eosinophils % 0.6 %; Hematocrit 31.6 % (35.3-44.9); Hemoglobin 9.8 g/dL (11.5-15.4); Immature Granulocytes % 0.9 % (0-4); Lymphocytes # 0.8 K/mcL (0.6-4.6); Lymphocytes % 14.3 %; Mean Corpuscular Hemoglobin 27.5 pg (28.0-33.3); Mean Corpuscular Volume 88.8 fL (83.0-100.0); Mean Platelet Volume 9.2 fL (9.4-12.4); Monocytes # 0.3 K/mcL (0.0-1.3); Monocytes % 5.5 %; Neutrophils # 4.2 K/mcL (1.6-8.9); Platelet Count 238 K/mcL (140-400); Red Blood Count 3.56 M/mcL (3.82-4.97); Red Cell Distribution Width 16.1 % (11.5-14.5); Segmented Neutrophils % 78.3 %; White Blood Count 5.3 K/mcL (4.3-11.1)
[2020-12-10 08:59] LABS: Alanine Aminotransferase 69 Units/L (7-52); Albumin 1.9 g/dL (3.5-5.7); Albumin/Globulin Ratio 0.8 (1.1-2.2); Alkaline Phosphatase 222 Units/L (34-104); Aspartate Amino Transferase 89 Units/L (13-39); BUN/Creatinine Ratio 42 (6-26); Bilirubin,Direct 0.1 mg/dL (0.0-0.2); Bilirubin,Indirect 0.2 mg/dL (0.0-1.0); Bilirubin,Total 0.3 mg/dL (0.3-1.0); Blood Urea Nitrogen 15 mg/dL (8-23); Calcium 7.5 mg/dL (8.6-10.3); Carbon Dioxide 26 mEq/L (23-29); Chloride 99 mEq/L (98-107); Globulin 2.3 g/dL (2.4-3.5); Glucose 89 mg/dL (70-105); Osmolality,Calculated 274 (280-300); Potassium 3.3 mEq/L (3.5-5.1); Sodium 132 mEq/L (136-145); Total Protein 4.2 g/dL (6.4-8.9); eGFR For African Americans > 60 (> 60); eGFR For Non-African Americans > 60 (> 60)
[2020-12-10] MEDS: *HR* Enoxaparin 40 MG/0.4 ML SYRINGE SQ SCH (09:18)
[2020-12-10] MEDS: Zinc Sulfate 220 MG CAPSULE PO SCH (09:18)
[2020-12-10] MEDS: Gabapentin 300 MG CAPSULE PO SCH (09:18)
[2020-12-10] MEDS: Loratadine 10 MG TABLET PO SCH (09:19)
[2020-12-10] MEDS: Sennosides/Docusate Sodium TABLET PO SCH (09:24)
[2020-12-10] MEDS: Fluticasone Propionate Nasal 50 MCG/SPRAY BOTTLE NS SCH (09:24)
[2020-12-10] MEDS: *HR* OxyCODONE Immed Rel 5 MG TABLET PO PRN (10:29)
[2020-12-10 10:35] LABS: Adenovirus F 40/41 PCR Not detected (Not detect); Astrovirus PCR Not detected (Not detect); C.difficile Toxin A/B Gene PCR Not detected (Not detect); Campylobacter by PCR Not detected (Not detect); Cryptosporidium by PCR Not detected (Not detect); Cyclospora cayetanensis PCR Not detected (Not detect); E. coli O157 by PCR Not detected (Not detect); Entamoeba histolytica PCR Not detected (Not detect); Enteroaggregative E.coli(EAEC) Not detected (Not detect); Enteropathogenic E.coli(EPEC) Not detected (Not detect); Enterotoxigenic E.coli (ETEC) Not detected (Not detect); Giardia lamblia PCR Not detected (Not detect); Norovirus GI/GII PCR Not detected (Not detect); Plesiomonas shigelloides PCR Not detected (Not detect); Rotavirus A PCR Not detected (Not detect); Salmonella PCR Not detected (Not detect); Sapovirus PCR Not detected (Not detect); Shig/EnteroinvasiveE coli EIEC Not detected (Not detect); Shigalike tox-prod E coli STEC Not detected (Not detect); Vibrio PCR Not detected (Not detect); Vibrio cholerae PCR Not detected (Not detect); Yersinia enterocolitica PCR Not detected (Not detect)
[2020-12-10] MEDS: Budesonide/Formoterol 80/4.5 1 PUFF INH IH SCH (11:29)
== END 2020-12-10 11:40 | disposition short-term general hospital (02) | DRG 592 ==
LOC: INPPIK 11-10 12:55
PROVIDERS: ADMIT Family Medicine; ATTEND Family Medicine